=== PATIENT | female | born 1940 | race Hispanic/Latino ===

== ENCOUNTER 2021-05-01 14:29 | Emergency (ER) | payer MEDICARE ==
[~2021-05-01] VITALS: Ht 167.6 cm; Wt 68.0 kg
[2021-05-01] MEDS ORDERED: CASIRIVIMAB/IMDEVIMAB 10 ML in SODIUM CHLORIDE 0.9% 100 ML IV ONE (15:00)
[2021-05-02] MEDS ORDERED: PROVENTIL HFA6.7 GM INH (13:59)
== END 2021-05-01 16:59 | disposition home or self-care (01) ==
LOC: ER 15:05
DX: U07.1 COVID-19 (principal)
CPT/HCPCS: 99283

== ENCOUNTER 2021-05-02 11:45 | Emergency (ER) | payer MEDICARE ==
[~2021-05-02] VITALS: Ht 167.6 cm; Wt 68.0 kg
[2021-05-02] MEDS ORDERED: ALBUTEROL SULFATE HFA 8GM INHALATION AEROSOL INH SCH (13:00)
[2021-05-02] MEDS ORDERED: PROVENTIL HFA6.7 GM INH (13:59)
[2021-05-02 15:19] VITALS: BP 126/71
== END 2021-05-02 14:29 | disposition home or self-care (01) ==
LOC: ER 12:25
DX: R07.89 Other chest pain (principal); U07.1 COVID-19; I10 Essential (primary) hypertension; E78.5 Hyperlipidemia, unspecified
CPT/HCPCS: 71045; 99283

== ENCOUNTER → 2021-07-02 | Outpatient (CLI) | payer MEDICARE ==
[~2021-07-02] MED LIST: PROVENTIL HFA6.7 GM INH; REGADENOSON 0.4 MG/5 ML SYR IV ONE
== END ==
LOC: NM 10:52
PROVIDERS: ATTEND Internal Medicine Cardiovascular Disease
DX: I25.10 Atherosclerotic heart disease of native coronary artery without angina pectoris (principal); R94.31 Abnormal electrocardiogram [ECG] [EKG]
CPT/HCPCS: 78452; 93017; A9502; J2785